=== PATIENT | male | born 2000 | race Caucasian/White ===

== ENCOUNTER 2023-01-10 19:26 | Emergency (ER) | payer BC, SELFPAY ==
[2023-01-10 19:29] VITALS: BP 119/71; PULSE 78; RESP 18; TEMP 37; O2SAT 96; BMI 36.1
--- NOTE | 2023-01-10 19:38 | HMH.EDGENADL ---
Discharge Plan Disposition Patient Disposition: Home, Self-Care Condition: Good Chief Complaint: Wound/Laceration Referrals Follow up/Referrals: Provider,Referral, MD [Primary Care Provider] - See instructions Clinical Impressions Clinical Impression: Laceration Instructions Patient Instructions: DI for Laceration Repair, DI for Wound Infection Discharge ED Provider: Rosalina Blum General Adult HPI General Chief complaint: Wound/Laceration Stated complaint: [id number] LT hand lac Time Seen by Provider: 01/10/23 19:38 History of Present Illness HPI narrative: 22-year-old male with no significant past medical history who comes into the ED with complaints of a laceration. Patient notes that he was working in her garden when he fell forwards, but accidentally cut his left thumb on a bolt that was sticking out of the ground. Patient notes that he has tightness updated 2 years ago. Patient notes that the wound is hemostatic fairly quickly. Related Data Allergies Allergy/AdvReac Type Severity Reaction Status Date / Time No Known Drug Allergies Allergy Verified 01/10/23 19:42 [facility] Disclaimer: The information contained in this section may have been updated after the patient was seen, as this information can be updated by other users. Social History Smoking Status: Never smoker alcohol intake: never current occupational status: employed Travel in the last 8 weeks: None ROS Obtained: Yes All systems reviewed & no additional complaints except as documented Physical Exam General General appearance: alert and in no apparent distress Head Head exam: atraumatic, normocephalic and normal inspection Eye Eye exam: Present normal appearance, PERRL and EOMI; Absent scleral icterus or nystagmus ENT ENT exam: Present normal exam, mucous membranes moist and normal external ear exam Neck Neck exam: Present normal inspection, full ROM and trachea midline Chest Chest inspection: Present normal inspection and symmetric chest wall rise; Absent tenderness Respiratory Respiratory exam: Present normal lung sounds bilaterally; Absent respiratory distress, wheezes or accessory muscle use Cardiovascular Cardiovascular exam: Present regular rate, normal rhythm and normal heart sounds Abdominal Exam Abdominal exam: Present soft; Absent distention, tenderness, guarding, rebound, rigidity, trauma, ascites or pulsatile mass exam: Present deferred Extremities Exam Extremities exam: Present normal inspection and full ROM; Absent tenderness Expanded Upper Extremity Exam Left: Hand L/R front image: 1. laceration Back Exam Back exam: Present normal inspection and full ROM; Absent tenderness Neurological Exam Neurological exam: Present alert, oriented X3, normal gait and motor sensory deficit Psychiatric Psychiatric exam: Present normal affect and normal mood Skin Skin exam: Present warm, dry and normal color Medical Decision Making Medical Records Medical records reviewed: Yes I reviewed the patient's medical records. Don Inquiry Pt receiving controlled substance: No Vital Signs: 01/10/23 19:29 Temperature 98.6 F Temperature Source Oral Pulse Rate [Right] 78 Respiratory Rate 18 Blood Pressure [Right Arm] 119/71 Blood Pressure Mean [Right Arm] 87 Blood Pressure Source [Right Arm] Automatic Cuff Blood Pressure Position [Right Arm] Sitting 02 Sat by Pulse Oximetry 96 Oxygen Delivery Method Room Air Lab Data Lab results reviewed: Yes I reviewed the patient's lab results. Orders (Tests/Meds): ORDERS Category Date Time Status Hand XR left minimum 3 views [XR hand LT min 3V] Stat Exams 01/10/23 19:42 Completed Medical Decision Narrative: In summary, 22-year-old male with no significant past medical history who comes into the ED with complaints of a laceration. Patient notes that he was working in her garden when he fell forwards, but accidentally cut his left thumb on
[2023-01-10 19:41] VITALS: BMI 36.1
--- NOTE | 2023-01-10 19:42 | XR_ITS ---
PROCEDURE INFORMATION: Exam: XR Left Hand Exam date and time: 01/10/2023 7:42 PM Age: 22 years old Clinical indication: Injury or trauma; Fall; Laceration; Hand; Left; Additional info: Rule out fracture TECHNIQUE: Imaging protocol: Radiologic exam of the left hand. Views: 3 or more views. COMPARISON: No relevant prior studies available. FINDINGS: Bones/joints: Normal. Soft tissues: No radiopaque foreign bodies identified at the soft tissues of the left hand. IMPRESSION: No radiopaque foreign bodies identified at the soft tissues of the left hand.
[2023-01-10 20:35] VITALS: BP 125/73; PULSE 72; RESP 18; TEMP 37; O2SAT 96
== END 2023-01-10 20:41 | disposition home or self-care (01) ==
PROVIDERS: Emergency Provider Emergency Medicine
DX: S61.412A Laceration without foreign body of left hand, initial encounter (principal); W26.8XXA Contact with other sharp object(s), not elsewhere classified, initial encounter; Y93.H2 Activity, gardening and landscaping
CPT/HCPCS: 12001; 73130; 99283